=== PATIENT | female | born 1955 | race Caucasian/White ===

== ENCOUNTER 2016-09-01 16:37 | Emergency (ER) | payer SELFPAY ==
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
--- NOTE | 2016-09-01 18:01 | ER NURSING DOCUMENTATION ---
Nurse's Notes [facility] Name:Shannon Tovar Age:60 yrs Sex:Female :1955 Arrival Date:09/01/2016 Time:16:37 Bed6 Private MD:Federica Valencia Diagnosis:Acute Low Back Pain Presentation: 09/01 16:42 Acuity: MITESH 4 sc1 16:44 Presenting complaint: Patient states: chronic back pain. Transition of care: Home. sc1 Notified ED Physician of patient's arrival and CC Dr. Cole notified. 16:44 Method Of Arrival: Private Vehicle sc1 Triage Assessment: 16:53 General: Appears in no apparent distress, well developed, well nourished, well groomed, sc1 Behavior is cooperative, pleasant. Pain: Complains of pain in low back area. Musculoskeletal: Circulation, motion, and sensation intact Capillary refill < 3 seconds. Historical: - Allergies: Vicodin; - Home Meds: 1. anti depressant 2. trazodone 50 mg Oral Tab - PMHx: DEPRESSION; breast cancer; Colon CA; - PSHx: Colon resection; - Ebola Screening: : Patient negative for fever greater than or equal to 101.5 degrees Fahrenheit, and additional compatible Ebola Virus Disease symptoms. Patient denies exposure to infectious person. Patient denies travel to an Ebola-affected area in the 21 days before illness onset. No symptoms or risks identified at this time. . - Immunization history: Pneumococcal vaccine is not up to date, Flu Vaccine None. - Social history: Smoking status: Patient states former smoker of tobacco. Patient/guardian denies using alcohol, street drugs, IV drugs, marijuana. Screenin:03 Infectious Disease Risk None. Abuse screen: Denies threats or abuse. Nutritional nc1 screening: No deficits noted. Vital Signs: 16:44 BP 143 / 59; Pulse 63; Resp 16; Temp 98.0; Pulse Ox 93% ; Weight 70.31 kg; Height 5 ft. jt (152.40 cm); Pain 10/10; 16:44 Body Mass Index 30.27 (70.31 kg, 152.40 cm) jt ED Course: 16:40 Patient arrived in ED. ama 16:40 Federica Valencia is Private Physician. ama 16:41 Seema Alex RN is Primary Nurse. sc1 16:42 Triage completed. sc1 16:53 Notified ED Physician of patient's arrival and chief complaint. Dr. Cole notified. sc1 17:09 Beto Cole MD is Attending Physician. sc 17:18 Patient moved to radiology. ms 17:46 Federica Valencia is Referral Physician. sc Administered Medications: No medications were administered Outcome: 17:47 Discharge ordered by . nc 18:00 Patient left the ED. nc1 Signatures: Seema Alex RN RN [facility] Beto Cole MD MD nc Deandre Clarice ms Erik Raymundo, Reg Reg Janiya Colunga
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
== END 2016-09-01 18:01 | disposition home or self-care (01) ==
LOC: ER 16:37
DX: M54.5 Low back pain (principal); V43.52XA Car driver injured in collision with other type car in traffic accident, initial encounter; Y92.410 Unspecified street and highway as the place of occurrence of the external cause
CPT/HCPCS: 72100; 99282